=== PATIENT | female | born 1985 | race African-American/Black ===

== ENCOUNTER 2019-09-10 12:59 | Inpatient (IN) ==
[2019-09-10] MEDS ORDERED: LACTATED RINGERS 1,000 ML IV STA (13:07)
[2019-09-10] MEDS ORDERED: ceFAZolin 1,000 MG VIAL ONE ×2 (13:17→15:30)
[2019-09-10 13:31] LABS: Basophils # 0.1 10*3/uL (0.0-0.2); Basophils % 0.8 % (0.0-0.8); Eosinophils # 0.2 10*3/uL (0.0-0.87); Eosinophils % 2.2 % (0.00-10.9); Hemoglobin 9.7 GM/DL (12.0-16.0); Immature Granulocytes % 0.4 %; Immature Granulocytes Absolute 0.04 #; Lymphocytes # 3.6 10*3/uL (1.4-4.0); Lymphocytes % 38.3 % (21.3-54.2); Mean Corpuscular HGB Conc 30.3 GM/DL (32-36); Mean Corpuscular Volume 69.9 FL (87-102); Monocytes % 7.4 % (1.7-12.7); Neutrophils % 50.9 % (38.7-73.9); Platelet Count 237 T/CUMM (130-400); Red Blood Count 4.58 MC/CUMM (3.8-5.5); White Blood Count 9.3 T/CUMM (4-12)
[2019-09-10] MEDS ORDERED: ONDANSETRON 4 MG/2 ML VIAL ONE ×2 (13:35→16:23)
[2019-09-10] MEDS ORDERED: MORPHINE 4 MG/1 ML VIAL ONE (13:36)
[2019-09-10] MEDS ORDERED: MORPHINE 4 MG/1 ML VIAL IV STA (13:41)
[2019-09-10] MEDS ORDERED: ONDANSETRON 4 MG/2 ML VIAL IV STA (13:41)
[2019-09-10] MEDS ORDERED: DIPH/TET/ACEL PERT BOOSTER VACCINE 0.5 ML VIAL IM ONE (13:43)
[2019-09-10 13:52] LABS: Apearance,Urine CLEAR (Clear); Bilirubin,Urine Negative (Negative); Blood, Urine Negative (Negative); Glucose,Urine (UA) Negative (Negative); Hyaline Casts,Urine 5 /LPF (0-3); Ketones,Urine Negative (Negative); Mucus,Urine Occasional /LPF (Occasional); Nitrite,Urine Negative (Negative); Protein,Urine 100 MG/DL; RBC,Urine <1 /HPF (0-4); Squamous Epithelial Cell,Urine Occasional /HPF (0-10); Urine Color Yellow (Yellow); Urine Specific Gravity 1.021 (1.001-1.035); Urine Urobilinogen < 2.0 EU/DL (0.2-1.0); WBC,Urine <1 /HPF (0-6)
[2019-09-10 14:00] LABS: Alanine Aminotransferase 36 U/L (13-56); Alkaline Phosphatase 75 U/L (45-117); Amylase 65 U/L (25-115); Aspartate Amino Transferase 33 U/L (0-37); Bilirubin,Total < 0.39 MG/DL (0.2-1.0); Blood Urea Nitrogen 15 MG/DL (7-18); Estimated Glom Filtration Rate 91 ML/MIN; Glucose 112 MG/DL (74-106); Total Protein 9.1 G/DL (6.4-8.3)
[2019-09-10] MEDS ORDERED: HYDROmorphone 2 MG/1 ML VIAL ONE (14:03)
[2019-09-10 14:06] LABS: Barbiturates Screen,Urine Negative (Negative); Benzodiazepines Screen,Urine Negative (Negative); Cannabinoid Screen,Urine Positive (Negative); Opiate Screen,Urine Negative (Negative); Phencyclidine Screen,Urine Negative (Negative)
[2019-09-10] MEDS ORDERED: HYDROmorphone 2 MG/1 ML VIAL IV STA (14:09)
[2019-09-10 14:14] LABS: PT Patient Result 10.2 SECS (9.8-11.9)
[2019-09-10] MEDS ORDERED: LIDOCAINE 1%/EPI INJ 20 ML VIAL ONE (14:23)
[2019-09-10] MEDS ORDERED: BUPIVACAINE MPF 0.25% 30 ML VIAL ONE (14:23)
[2019-09-10 14:29] LABS: ABG Base Excess -4.5 MMOL/L (-2.5-2.5); ABG HCO3 20.7 MMOL/L (20-26); ABG Oxygen Saturation 98.5 % (95-100); ABG PCO2 39.8 MM HG (35-48); ABG PH 7.331 (7.35-7.45); ABG TCO2 19.6 MMOL/L (23-27)
[2019-09-10] MEDS ORDERED: ALBUTEROL/IPRATROPIUM 3 ML NEB RESP TX PRN (14:31)
[2019-09-10] MEDS ORDERED: ONDANSETRON 4 MG/2 ML VIAL IV PRN (14:31)
[2019-09-10] MEDS ORDERED: HYDROmorphone 2 MG/1 ML VIAL IV PRN (14:31)
[2019-09-10] MEDS ORDERED: ACETAMINOPHEN 325 MG TABLET PO PRN (14:31)
[2019-09-10] MEDS ORDERED: SODIUM CHLORIDE 0.9% 1,000 ML IV PRN (14:52)
[2019-09-10] MEDS ORDERED: LACTATED RINGERS 1,000 ML IV ONE (15:06)
[2019-09-10 15:24] LABS: ABG Base Excess -5.2 MMOL/L (-2.5-2.5); ABG HCO3 20.1 MMOL/L (20-26); ABG Oxygen Saturation 99.7 % (95-100); ABG PCO2 42.5 MM HG (35-48); ABG PH 7.301 (7.35-7.45); ABG TCO2 19.4 MMOL/L (23-27); Glucose Heart Surgery 130 MG/DL (74-106); Hematocrit Heart Surgery 29.2 PERCENT (37-47); Hemoglobin Heart Surgery 9.4 G/DL (12.0-16.0); Ionized Calcium Arterial 1.16 MMOL/L (1.21-1.46); PCO2 Patient Temp Arterial 42.5 MMHG; PH Patient Temp Arterial 7.301; Patient Temperature 37 CELCIUS; Sodium Heart/CVR 136 MMOL/L (135-145)
[2019-09-10] MEDS ORDERED: GENTAMICIN 80 MG/2 ML VIAL ONE (15:35)
[2019-09-10] MEDS ORDERED: BACITRACIN OINT 0.9 GM PACK TOP ONE (15:47)
[2019-09-10] MEDS ORDERED: SUGAMMADEX 200 MG/2 ML VIAL IV ONE (15:49)
[2019-09-10] MEDS ORDERED: cefOXitin 2,000 MG in SYRINGE 1 EACH IV SCH (16:00)
[2019-09-10] MEDS ORDERED: LIDOCAINE 2% 5 ML VIAL ONE (16:22)
[2019-09-10] MEDS ORDERED: fentaNYL 100 MCG/2 ML VIAL ONE ×2 (16:22)
[2019-09-10] MEDS ORDERED: SEVOFLURANE 1 UNIT/15 MINUTE INH ONE (16:22)
[2019-09-10] MEDS ORDERED: MIDAZOLAM 2 MG/2 ML VIAL ONE (16:22)
[2019-09-10] MEDS ORDERED: ETOMIDATE 40 MG/20 ML VIAL IV ONE (16:23)
[2019-09-10] MEDS ORDERED: ROCURONIUM 100 MG/10 ML VIAL IV ONE (16:23)
[2019-09-10] MEDS ORDERED: DEXAMETHASONE 4 MG/1 ML VIAL ONE (16:23)
[2019-09-10] MEDS ORDERED: SUCCINYLCHOLINE 200 MG/10 ML VIAL ONE (16:23)
[2019-09-10] MEDS ORDERED: SODIUM CHLORIDE 0.9% 1,000 ML IV ONE (16:23)
[2019-09-10] MEDS ORDERED: hydrALAZINE 20 MG/1 ML VIAL ONE (16:46)
[2019-09-10] MEDS ORDERED: hydrALAZINE 20 MG/1 ML VIAL IV ONE (17:02)
[2019-09-10] MEDS: LACTATED RINGERS 1,000 ML IV SCH (17:32)
[2019-09-10] MEDS: HYDROmorphone 2 MG/1 ML VIAL IV PRN ×2 (17:32→21:37)
[2019-09-10] MEDS ORDERED: hydrALAZINE 20 MG/1 ML VIAL IV PRN (17:41)
[2019-09-10 18:45] LABS: Calcium 8.4 MG/DL (8.5-10.1); Osmolality,Calculated 264.5 MOS/KG (273-304)
[2019-09-10 18:53] LABS: Basophils # 0.1 10*3/uL (0.0-0.2); Basophils % 0.4 % (0.0-0.8); Hemoglobin 10.5 GM/DL (12.0-16.0); Immature Granulocytes % 0.5 %; Immature Granulocytes Absolute 0.06 #; Lymphocytes # 0.6 10*3/uL (1.4-4.0); Lymphocytes % 4.9 % (21.3-54.2); Mean Corpuscular HGB Conc 31.8 GM/DL (32-36); Mean Corpuscular Volume 70.1 FL (87-102); Monocytes % 2.7 % (1.7-12.7); Neutrophils % 91.5 % (38.7-73.9); Platelet Count 203 T/CUMM (130-400); Red Blood Count 4.71 MC/CUMM (3.8-5.5); Red Cell Distribution Width 23.5 % (9.3-17.3); White Blood Count 13.1 T/CUMM (4-12)
[2019-09-10 19:18] LABS: Anisocytosis 2+; Lymphocytes 7 % (20-55); Macrocytosis Slight; Microcytosis 2+; Platelet Estimate Normal; Polychromasia Slight; Reactive Lymphocytes Slight; Segmented Neutrophils 90 % (50-85); Target Cells Slight; Total Cells Counted 100
[2019-09-10] MEDS: GENTAMICIN INJ 120 MG in PREMIX 1 EACH IV SCH (22:29)
[2019-09-10] MEDS: ceFAZolin 2,000 MG in PREMIX 1 EACH IV SCH (22:29)
[2019-09-11] MEDS: LACTATED RINGERS 1,000 ML IV SCH ×4 (02:44→22:47)
[2019-09-11 05:22] LABS: Basophils % 0.1 % (0.0-0.8); Hematocrit 31.6 VOL% (35.7-47.0); Hemoglobin 10.3 GM/DL (12.0-16.0); Immature Granulocytes % 0.5 %; Immature Granulocytes Absolute 0.06 #; Lymphocytes # 0.7 10*3/uL (1.4-4.0); Mean Corpuscular HGB Conc 32.6 GM/DL (32-36); Mean Corpuscular Volume 68.1 FL (87-102); Monocytes % 6.7 % (1.7-12.7); Neutrophils % 86.7 % (38.7-73.9); Platelet Count 198 T/CUMM (130-400); Red Blood Count 4.64 MC/CUMM (3.8-5.5); Red Cell Distribution Width 23.2 % (9.3-17.3); White Blood Count 12.3 T/CUMM (4-12)
[2019-09-11 05:32] LABS: PT Patient Result 10.9 SECS (9.8-11.9); Partial Thromboplastin Time 27.6 SECS (23.9-33.8)
[2019-09-11 05:40] LABS: Hypochromasia 1+; Microcytosis 1+; Ovalocytes Slight; Platelet Estimate Adequate
[2019-09-11] MEDS: GENTAMICIN INJ 120 MG in PREMIX 1 EACH IV SCH ×3 (05:40→22:49)
[2019-09-11 06:05] LABS: Albumin 3.2 G/DL (3.4-5.0); Bilirubin,Total 0.8 MG/DL (0.2-1.0); Osmolality,Calculated 266.2 MOS/KG (273-304); Total Protein 7.4 G/DL (6.4-8.3)
[2019-09-11] MEDS: ceFAZolin 2,000 MG in PREMIX 1 EACH IV SCH ×3 (06:11→23:57)
[2019-09-11] MEDS: HYDROmorphone 2 MG/1 ML VIAL IV PRN ×4 (06:11→22:48)
[2019-09-11] MEDS: PANTOPRAZOLE 40 MG VIAL IV SCH (09:36)
[2019-09-11] MEDS ORDERED: KETOROLAC 15 MG/1 ML VIAL IV PRN (09:48)
[2019-09-12] MEDS: HYDROmorphone 2 MG/1 ML VIAL IV PRN ×3 (01:33→11:02)
[2019-09-12] MEDS: GENTAMICIN INJ 120 MG in PREMIX 1 EACH IV SCH ×2 (06:27→16:31)
[2019-09-12] MEDS: LACTATED RINGERS 1,000 ML IV SCH ×2 (08:13→16:32)
[2019-09-12] MEDS: PANTOPRAZOLE 40 MG VIAL IV SCH (08:57)
[2019-09-12] MEDS: ceFAZolin 2,000 MG in PREMIX 1 EACH IV SCH ×2 (08:58→16:31)
[2019-09-12 09:15] LABS: Basophils % 0.3 % (0.0-0.8); Eosinophils # 0.1 10*3/uL (0.0-0.87); Eosinophils % 0.9 % (0.00-10.9); Hematocrit 30.1 VOL% (35.7-47.0); Immature Granulocytes % 0.5 %; Immature Granulocytes Absolute 0.05 #; Lymphocytes # 1.3 10*3/uL (1.4-4.0); Lymphocytes % 13.5 % (21.3-54.2); Mean Corpuscular HGB Conc 33.2 GM/DL (32-36); Mean Corpuscular Volume 67.3 FL (87-102); Monocytes % 8.7 % (1.7-12.7); Neutrophils % 76.1 % (38.7-73.9); Platelet Count 182 T/CUMM (130-400); Red Blood Count 4.47 MC/CUMM (3.8-5.5); Red Cell Distribution Width 23.7 % (9.3-17.3); White Blood Count 9.9 T/CUMM (4-12)
[2019-09-12 09:35] LABS: Platelet Estimate Normal
[2019-09-12 09:36] LABS: Anisocytosis 1+; Macrocytosis 1+; Target Cells Few
[2019-09-12 12:26] VITALS: BP 119/70
== END 2019-09-12 16:26 | disposition home or self-care (01) | DRG 911 ==
LOC: EDBD → EDUNIT# → N.ED 12:59 → SUATTDRO 14:31 → N.EDINP 14:31 → N.ICU 15:02 → N.3E 09-11 12:36
PROVIDERS: ADMIT Surgery; ATTEND Surgery

== ENCOUNTER 2020-12-16 14:14 | Observation (INO) ==
[2020-12-16 15:55] LABS: Basophils % 0.5 % (0.0-0.8); Eosinophils # 0.2 10*3/uL (0.0-0.87); Eosinophils % 5.7 % (0.00-10.9); Hemoglobin 6.9 GM/DL (12.0-16.0); Immature Granulocytes % 0.5 %; Immature Granulocytes Absolute 0.02 #; Lymphocytes # 1.3 10*3/uL (1.4-4.0); Lymphocytes % 33.1 % (21.3-54.2); Mean Corpuscular Volume 62.5 FL (87-102); Monocytes % 8.9 % (1.7-12.7); Neutrophils % 51.3 % (38.7-73.9); Platelet Count 188 T/CUMM (130-400); Red Blood Count 3.68 MC/CUMM (3.8-5.5); Red Cell Distribution Width 22.6 % (9.3-17.3); White Blood Count 4.1 T/CUMM (4-12)
[2020-12-16 16:12] LABS: Alanine Aminotransferase 23 U/L (13-56); Albumin 3.3 G/DL (3.4-5.0); Alkaline Phosphatase 69 U/L (45-117); Aspartate Amino Transferase 21 U/L (0-37); Bilirubin,Total < 0.39 MG/DL (0.20-1.00); Blood Urea Nitrogen 11 MG/DL (7-18); Calcium 8.4 MG/DL (8.5-10.1); Carbon Dioxide 24 MMOL/L (21-32); Estimated Glom Filtration Rate 153 ML/MIN; Glucose 95 MG/DL (74-106); Osmolality,Calculated 271.8 MOS/KG (273-304); Sodium 137 MMOL/L (136-145); Total Protein 7.3 G/DL (6.4-8.2)
[2020-12-16 16:26] LABS: Eosinophils 5 % (0-10); Hypochromasia 2+; Lymphocytes 31 % (20-55); Poikilocytosis 2+; Segmented Neutrophils 61 % (50-85); Total Cells Counted 100
[2020-12-16 16:27] LABS: Anisocytosis 2+; Ovalocytes Few; Polychromasia 1+
[2020-12-16 16:28] LABS: Platelet Estimate Normal
[2020-12-16] MEDS ORDERED: GLUCAGON 1 MG VIAL IM PRN (17:18)
[2020-12-16] MEDS ORDERED: DEXTROSE 50% 25 GM/50 ML VIAL IV PRN (17:18)
[2020-12-16] MEDS ORDERED: ACETAMINOPHEN 325 MG TABLET PO PRN (17:18)
[2020-12-16] MEDS ORDERED: hydrALAZINE 20 MG/1 ML VIAL IV PRN (17:18)
[2020-12-16] MEDS ORDERED: NICOTINE 21 MG/24 HR PATCH TRANSDERM PRN (17:18)
[2020-12-16] MEDS ORDERED: ONDANSETRON 4 MG/2 ML VIAL IV PRN (17:18)
[2020-12-16] MEDS ORDERED: SODIUM CHLORIDE 0.9% 1,000 ML IV PRN (17:27)
[2020-12-16] MEDS: SODIUM CHLORIDE 0.9% 1,000 ML IV SCH (18:47)
[2020-12-16] MEDS: PANTOPRAZOLE 40 MG VIAL IV SCH (21:41)
[2020-12-17] MEDS: SODIUM CHLORIDE 0.9% 1,000 ML IV SCH ×2 (04:25→14:18)
[2020-12-17 05:28] LABS: Basophils % 0.8 % (0.0-0.8); Eosinophils # 0.2 10*3/uL (0.0-0.87); Hematocrit 25.5 VOL% (35.7-47.0); Hemoglobin 7.6 GM/DL (12.0-16.0); Immature Granulocytes % 0.3 %; Immature Granulocytes Absolute 0.01 #; Lymphocytes # 1.4 10*3/uL (1.4-4.0); Lymphocytes % 36.9 % (21.3-54.2); Mean Corpuscular HGB Conc 29.8 GM/DL (32-36); Mean Corpuscular Volume 64.7 FL (87-102); Monocytes % 8.8 % (1.7-12.7); Neutrophils % 48.2 % (38.7-73.9); Platelet Count 164 T/CUMM (130-400); Red Blood Count 3.94 MC/CUMM (3.8-5.5); Red Cell Distribution Width 24.1 % (9.3-17.3); White Blood Count 3.8 T/CUMM (4-12)
[2020-12-17 06:01] LABS: Calcium 8.1 MG/DL (8.5-10.1); Osmolality,Calculated 271.8 MOS/KG (273-304); Potassium 3.5 MMOL/L (3.5-5.1); Risk Ratio 2.65; Thyroid Stimulating Hormone 5.48 uIU/ml (0.358-3.74); VLDL Cholesterol 11.2 MG/DL
[2020-12-17 06:05] LABS: Hypochromasia 1+; Microcytosis 1+; Platelet Estimate Adequate
[2020-12-17] MEDS ORDERED: LEVOTHYROXINE 137 MCG TABLET PO SCH (08:51)
[2020-12-17] MEDS ORDERED: SODIUM CHLORIDE 0.9% 1,000 ML IV PRN (08:54)
[2020-12-17] MEDS: PANTOPRAZOLE 40 MG VIAL IV SCH (09:57)
[2020-12-17 16:36] VITALS: BP 132/86
[2020-12-17 17:13] LABS: Hematocrit 31.2 VOL% (35.7-47.0); Hemoglobin 9.5 GM/DL (12.0-16.0)
== END 2020-12-17 17:28 | disposition home or self-care (01) ==
LOC: N.EDINP 14:14 → N.ED 14:14 → SUATTDRO 17:18 → N.EDINP 21:08 → N.TELES 21:35
PROVIDERS: ADMIT Phlebology; ATTEND Internal Medicine